=== PATIENT | female | born 1995 | race American Indian/Alaskan Native ===

== ENCOUNTER 2019-08-18 13:57 | Emergency (ER) | payer OTHER ==
[2019-08-18 14:03] VITALS: BP 119/58
--- NOTE | 2019-08-18 15:17 | Emergency Department Report ---
ED Rash HPI - HPI Chief Complaint: Skin Rash Stated Complaint: RASH ALL OVER Time Seen by Provider: 08/18/19 14:32 Duration: 1 Day Location: Upper Extremities, Other (bilateral breast and groin) Suspected Cause: Unknown Rash Symptoms: Yes Itching, No Facial Swelling, No Tongue/Oral Swelling, No Breathing Difficulties, No Choking Sensation, No Wheezing/Dyspnea, No Peeling, No Blistering, No Fever, No Lightheaded, No Malaise, No Myalgias Severity: mild Other History: This is a 24-year-old -[place] female who presents to the emergency room with pruritus, rash to bilateral axilla, bilateral breast, and groins. Patient states she was in drill yesterday and experienced a lot of sweating which she thinks caused a rash to the sites. She woke up this morning with worsening pruritus and spreading of rash. Denies redness, pain, weeping, or swelling. ED Review of Systems ROS: Stated complaint: RASH ALL OVER Other details as noted in HPI Constitutional: denies: chills, fever Respiratory: denies: cough, shortness of breath, wheezing Cardiovascular: denies: chest pain, palpitations Gastrointestinal: denies: abdominal pain, nausea, diarrhea Skin: rash, pruritus. denies: lesions Neurological: denies: headache, weakness, paresthesias Psychiatric: denies: anxiety, depression ED Past Medical Hx - Past Medical History Previous Medical History?: No - Surgical History Past Surgical History?: No - Medications Home Medications: Home Medications Medication Instructions Recorded Confirmed Last Taken Type Prednisone [predniSONE 10 mg 10 mg PO .TAPER #1 tab.ds.pk 08/18/19 Unknown Rx (6-Day Pack, 21 Tabs)] hydrOXYzine PAMOATE [Vistaril] 25 mg PO Q6HR PRN #20 capsule 08/18/19 Unknown Rx Rash Exam - Exam General: Vital signs noted. No distress. Alert and acting appropriately. HEENT: No Periorbital Edema, No Conjuctival Injection, No Chemosis, No Perioral Edema, No Tongue Edema, No Uvular Edema, No Compromised Airway, No Drooling Lungs: Yes Good Air Exchange (Normal Breath Sounds), No Wheezes, No Ronchi, No Stridor, No Cough, No Labored Respirations, No Retractions, No Use of Accessory Muscles, No Other Abnormal Lung Sounds Heart: Yes Regular, No Murmur Skin: Yes Maculopapular Rash (bilateral groin, bilateral axilla, under both breasts,, blanchable), No Urticarial Rash, No Morbilliform rash, No Bulla(e), No Excoriations, No Weeping, No Tenderness, No Erythema, No Edema, No Encrustations ED Course Vital Signs 08/18/19 14:02 Temperature 98.4 F Pulse Rate 77 Respiratory 13 Rate Blood Pressure 119/58 O2 Sat by Pulse 98 Oximetry ED Medical Decision Making - Medical Decision Making This is a 24-year-old female that presents to the ER with pruritic rash to torso, groin, and bilateral axilla. Patient is afebrile in no acute distress. There is a maculopapular rash to bilateral axilla, up under both breasts, and bilateral groin which appears to be contact dermatitis. Patient will be started on steroids and Vistaril. Referral to PCP for continued care. Patient discharged home with strict return instructions. Critical care attestation.: If time is entered above; I have spent that time in minutes in the direct care of this critically ill patient, excluding procedure time. ED Disposition Clinical Impression: Pruritic rash Contact dermatitis Qualifiers: Contact dermatitis type: irritant Contact dermatitis trigger: unspecified trigger Qualified Code(s): L24.9 - Irritant contact dermatitis, unspecified cause Disposition: TO HOME OR SELFCARE Is pt being admited?: No Condition: Stable Instructions: Contact Dermatitis (ED) Prescriptions: Prednisone [predniSONE 10 mg (6-Day Pack, 21 Tabs)] 10 mg PO .TAPER #1 tab.ds.pk hydrOXYzine PAMOATE [Vistaril] 25 mg PO Q6HR PRN #20 capsule PRN Reason: Itching Referrals: FATIMAH FOSTER MD [Staff Physician] - 3-5 Days FÉLIX KERR MD [Staff Physician] - 3-5 Days Forms: Work/School Release Form(ED) Time of Disposition: 15:18
== END 2019-08-18 16:25 | disposition home or self-care (01) ==
LOC: ED 13:57
DX: L25.9 Unspecified contact dermatitis, unspecified cause (principal); L28.2 Other prurigo; Z79.899 Other long term (current) drug therapy
CPT/HCPCS: 99281